=== PATIENT | male | born 1990 | race Caucasian/White ===

== ENCOUNTER 2019-01-11 08:52 | Outpatient (CLI) | payer OTHER | END 2019-01-11 11:22 | disposition home or self-care (01) | LOC: SONOGRAMA 08:52 | DX: R22.1 Localized swelling, mass and lump, neck (principal) ==

== ENCOUNTER 2019-01-23 08:16 | Outpatient (CLI) | payer OTHER | END 2019-01-23 08:18 | disposition home or self-care (01) | LOC: TOM 08:16 | DX: R22.1 Localized swelling, mass and lump, neck (principal) ==

== ENCOUNTER 2019-05-14 23:53 | Emergency (ER) | payer OTHER ==
[~2019-05-14] VITALS: Ht 182.9 cm; Wt 86.2 kg
[2019-05-15] MEDS ORDERED: INTESTINEX680 M1 PO (04:46)
[2019-05-15] MEDS ORDERED: LEVSIN/SL0.125 MG SL (04:47)
== END 2019-05-15 04:36 | disposition home or self-care (01) ==
LOC: ER 23:53
DX: R50.9 Fever, unspecified (principal); R06.02 Shortness of breath

== ENCOUNTER 2019-08-07 09:16 | Outpatient (CLI) | payer OTHER ==
[~2019-08-07 09:16] MED LIST: INTESTINEX680 M1 PO; LEVSIN/SL0.125 MG SL
== END 2019-08-07 09:23 | disposition home or self-care (01) ==
LOC: LAB 09:16
DX: N20.0 Calculus of kidney (principal)

== ENCOUNTER 2019-08-08 09:13 | Outpatient (CLI) | payer OTHER | END 2019-08-08 10:00 | disposition home or self-care (01) | LOC: MRI 09:13 | DX: M62.89 Other specified disorders of muscle (principal) | CPT/HCPCS: 70543; A9575; 70542 ==

== ENCOUNTER → 2020-04-01 | Outpatient (CLI) | payer OTHER | END | disposition home or self-care (01) | LOC: RAD 13:25 | PROVIDERS: ATTEND Physical Medicine & Rehabilitation | DX: M62.830 Muscle spasm of back (principal); M54.2 Cervicalgia; M54.5 Low back pain ==

== ENCOUNTER 2020-08-19 13:00 | Outpatient (CLI) | payer OTHER | END 2020-08-19 13:13 | disposition home or self-care (01) | LOC: SONOGRAMA 13:00 → MAMO-SONO 13:15 | PROVIDERS: ATTEND Family Medicine | DX: E04.2 Nontoxic multinodular goiter (principal); G56.01 Carpal tunnel syndrome, right upper limb; R22.1 Localized swelling, mass and lump, neck; M79.641 Pain in right hand; M25.531 Pain in right wrist; M75.81 Other shoulder lesions, right shoulder ==

== ENCOUNTER 2021-08-03 12:12 | Outpatient (CLI) | payer OTHER | END 2021-08-03 13:19 | disposition home or self-care (01) | LOC: RAD 12:12 | PROVIDERS: ATTEND Family Medicine | DX: R22.1 Localized swelling, mass and lump, neck (principal); R06.00 Dyspnea, unspecified; R05.9 Cough, unspecified ==

== ENCOUNTER 2022-02-03 14:17 | Outpatient (CLI) | payer OTHER | END 2022-02-03 14:20 | disposition home or self-care (01) | LOC: RAD 14:17 | PROVIDERS: ATTEND Family Medicine | DX: R05.1 Acute cough (principal); U09.9 Post COVID-19 condition, unspecified ==

== ENCOUNTER 2022-05-20 10:12 | Outpatient (CLI) | payer OTHER | END 2022-05-20 10:18 | disposition home or self-care (01) | LOC: RAD 10:12 | PROVIDERS: ATTEND Family Medicine | DX: M54.50 Low back pain, unspecified (principal); M25.561 Pain in right knee ==

== ENCOUNTER 2022-06-28 14:08 | Outpatient (CLI) | payer OTHER | END 2022-06-28 14:15 | disposition home or self-care (01) | LOC: RAD 14:08 | PROVIDERS: ATTEND Family Medicine | DX: M25.561 Pain in right knee (principal); M54.50 Low back pain, unspecified; R51.9 Headache, unspecified | CPT/HCPCS: 72148; 73721 ==

== ENCOUNTER 2023-04-26 13:30 | Outpatient (CLI) | payer OTHER | END 2023-04-26 13:38 | disposition home or self-care (01) | LOC: MRI 13:30 | PROVIDERS: ATTEND Family Medicine | DX: M54.51 Vertebrogenic low back pain (principal) | CPT/HCPCS: 72148 ==

== ENCOUNTER 2023-07-27 07:27 | Outpatient (CLI) | payer OTHER | END 2023-07-27 07:31 | disposition home or self-care (01) | LOC: SONOGRAMA 07:27 | PROVIDERS: ATTEND Family Medicine | DX: K21.9 Gastro-esophageal reflux disease without esophagitis (principal) ==